=== PATIENT | female | born 1990 | race Caucasian/White ===

== ENCOUNTER 2018-08-05 13:22 | Emergency (ER) | payer BC ==
--- NOTE | 2018-08-05 13:47 | EDM.PDOC ---
ED HPI GENERAL MEDICAL PROBLEM - General Chief Complaint: ENT Problem Stated Complaint: HARD TIME BREATHING SICK [id number] Time Seen by Provider: 08/05/18 13:46 Source of Information: Reports: Patient History Limitations: Reports: No Limitations - History of Present Illness INITIAL COMMENTS - FREE TEXT/NARRATIVE: Pt to the ER with c/o sore throat, left ear pain, fever and chills, nausea, generalized body aches. Patient states she has had an upper respiratory infection for the past week or longer and this morning she woke up and her throat and ear were very painful. Patient denies cough, vomiting, or diarrhea, denies chest pain and SOB. Onset: Gradual Left Ear Pain Score (Numeric/FACES): 8 - Related Data Allergies Allergy/AdvReac Type Severity Reaction Status Date / Time gentamicin Allergy Rash Verified 08/05/18 13:29 sulfur dioxide Allergy Rash Verified 08/05/18 13:29 Home Meds: Home Meds . 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 Musculoskeletal History: Reports: None Neurological History: Reports: None Psychiatric History: Reports: None Endocrine/Metabolic History: Reports: None Hematologic History: Reports: None Immunologic History: Reports: None Oncologic (Cancer) History: Reports: None Dermatologic History: Reports: None - Infectious Disease History Infectious Disease History: Reports: None - Past Surgical History Head Surgeries/Procedures: Reports: None Social & Family History - Family History Family Medical History: Noncontributory - Tobacco Use Smoking Status *Q: Current Every Day Smoker Years of Tobacco use: 1 Packs/Tins Daily: 1 - Caffeine Use Caffeine Use: Reports: None - Recreational Drug Use Recreational Drug Use: No ED ROS ENT - Review of Systems Review Of Systems: ROS reveals no pertinent complaints other than HPI. ED EXAM, ENT - Physical Exam Exam: See Below Exam Limited By: No Limitations General Appearance: Alert, WD/WN, Lethargic, Mild Distress Eye Exam: Bilateral Eye: EOMI, Normal Inspection Ears: Normal External Exam, Hearing Grossly Normal, TM Bulging (left), TM Dullness (left), TM Erythema (left) Nose: Normal Inspection Mouth/Throat: Normal Inspection, Pharyngeal Erythema, Tonsillar Erythema, Tonsillar Swelling Head: Atraumatic, Normocephalic Neck: Normal Inspection, Supple, Non-Tender, Full Range of Motion Respiratory/Chest: No Respiratory Distress, Lungs Clear, Normal Breath Sounds, No Accessory Muscle Use, Chest Non-Tender Cardiovascular: Normal Peripheral Pulses, Regular Rate, Rhythm, No Edema, No Gallop, No JVD, No Murmur, No Rub GI/Abdominal: Normal Bowel Sounds, Soft, Non-Tender (Female) Exam: Deferred Rectal (Female) Exam: Deferred Back: Normal Inspection, Full Range of Motion Extremities: Normal Inspection, Normal Range of Motion, Non-Tender, No Pedal Edema, Normal Capillary Refill Neurological: Alert, Oriented, CN II-XII Intact, Normal Cognition, Normal Gait, Normal Reflexes, No Motor/Sensory Deficits Psychiatric: Normal Mood, Flat Affect Skin: Warm, Dry, Intact, Normal Color, No Rash Lymphatic: No Adenopathy Course - Vital Signs Last Recorded V/S: Last Vital Signs Temp 100.0 F 08/05/18 13:30 Pulse 110 H 08/05/18 13:30 Resp 16 08/05/18 13:30 BP 143/96 H 08/05/18 13:30 Pulse Ox 100 08/05/18 13:30 - Orders/Labs/Meds Orders: Active Orders 24 hr Category Date Time Status CULTURE STREP A CONFIRMATION [] Stat Lab 08/05/18 13:32 Results STREP SCRN A RAPID W CULT CONF [] Stat Lab 08/05/18 13:32 Results Labs: Rapid Strep: Negative Departure - Departure Time of Disposition: 14:07 Disposition: Home, Self-Care 01 Condition: Fair Clinical Impression: Tonsillitis Otitis media Qualifiers: Otitis media type: suppurative Chronicity: acute Laterality: left Recurrence: not specified as recurrent Spontaneous tympanic membrane rupture: without spontaneous rupture Qualified Code(s): H66.002 - Acute suppurative otitis media without spontaneous rupture of ear drum, left ear - Discharge Information *PRESCRIPTION DRUG MONITORING PROGRAM REVIEWED*: No *COPY OF PRESCRIPTION DRUG MONITORING REPORT IN PATIENT HERNESTO: No Instructions: Tonsillitis, [id number], Otitis Media, Adult, Ojty-li-Zegx, Upper Respiratory Infection, Adult, [id number] Forms: ED Department Discharge Additional Instructions: RX: Amoxicillin May use tylenol and/or ibuprofen as directed for pain/fever Drink plenty of fluids Follow up with your primary care facility - My Orders Last 24 Hours: My Active Orders 08/05/18 13:32 CULTURE STREP A CONFIRMATION [RM] Stat STREP SCRN A RAPID W CULT CONF [] Stat - Assessment/Plan Last 24 Hours: My Active Orders 08/05/18 13:32 CULTURE STREP A CONFIRMATION [] Stat STREP SCRN A RAPID W CULT CONF [] Stat
== END 2018-08-05 14:11 | disposition home or self-care (01) ==
LOC: DL.ED 13:22
DX: J03.90 Acute tonsillitis, unspecified (principal); H66.002 Acute suppurative otitis media without spontaneous rupture of ear drum, left ear; F17.210 Nicotine dependence, cigarettes, uncomplicated; Z88.1 Allergy status to other antibiotic agents; Z88.2 Allergy status to sulfonamides
CPT/HCPCS: 87081; 87430; 99283

== ENCOUNTER 2020-04-27 02:25 | Inpatient (IN) | payer OTHER ==
[2020-04-27] MEDS ORDERED: Ondansetron 4 MG/2 ML SDV ONE (03:34)
[2020-04-27] MEDS: Lactated Ringers 1,000 ML IV SCH ×2 (03:40→04:40)
[2020-04-27] MEDS ORDERED: Ondansetron 4 MG/2 ML SDV IVPUSH PRN (04:05)
[2020-04-27] MEDS ORDERED: Lidocaine 1% 30 ML SDV ONE (06:01)
[2020-04-27] MEDS: Oxytocin/Normal Saline 30 UNIT/500 ML BAG IV SCH ×2 (06:05→08:24)
[2020-04-27] MEDS ORDERED: Zolpidem 5 MG Tab PO PRN (06:23)
[2020-04-27] MEDS ORDERED: Misoprostol 400 MCG (4 X 100 MCG TAB) RECTAL PRN (06:23)
[2020-04-27] MEDS ORDERED: Carboprost Tromethamine 250 MCG/1 ML Amp IM PRN (06:23)
[2020-04-27] MEDS ORDERED: Sodium Chloride 0.9% 10 ML Syringe FLUSH PRN (06:23)
[2020-04-27] MEDS ORDERED: Tranexamic Acid 1,000 MG in Sodium Chloride 0.9% 100 ML IV PRN (06:23)
[2020-04-27] MEDS ORDERED: Benzocaine/Menthol 20%-0.5% Spray 56 GM Canister TOP PRN (06:23)
[2020-04-27] MEDS ORDERED: Oxytocin 10 Units/1 ML SDV IM PRN (06:23)
[2020-04-27] MEDS: Piperacillin/Tazobactam 3.375 GM in Sodium Chloride 0.9% 100 ML IV SCH ×2 (08:54→21:10)
[2020-04-27] MEDS: Prenatal Multivitamin with Calcium/Folic Acid/Iron Tab PO SCH (08:59)
--- NOTE | 2020-04-27 16:28 | HP ---
LOCATION: [facility]. HISTORY OF PRESENT ILLNESS: The patient is a 29-year-old, G1 at 40 weeks and 3 days, who presents with contraction and loss of fluid, which she thinks started roughly around midnight. No vaginal bleeding. Good movement. She has had excellent care. OBSTETRIC HISTORY: She is a G0. GYNECOLOGIC HISTORY: She did have chlamydia treated this . Test of cure in February of 2020 was normal. No abnormal Paps. PAST MEDICAL HISTORY: Negative. PAST SURGICAL HISTORY: Negative. SOCIAL HISTORY: The patient does not smoke. ALLERGIES: The patient is allergic to clindamycin, gentamicin, and sulfa. LABS: The patient's blood type is AB positive, antibody negative, rubella immune, syphilis negative, hepatitis B negative, HIV negative, 1-hour was 102, GBS is negative. The patient did have an ultrasound on 01/03/2020 which showed an anterior placenta, normal anatomy consistent with dates. PHYSICAL EXAMINATION: Vital Signs: The patient's temperature 36.7, heart rate 93, blood pressure 133/91, O2 sat 100%. Pelvic: EFM is reactive, reassuring. She is cesia every 2 to 3 minutes. The labor nurse did call me and told me she was in active labor. We did get an intrathecal, and within a couple of hours, she was ready to start pushing. LABORATORY DATA: The patient's white blood cell count 12.5, hemoglobin 12.9, platelets 272, and she is COVID negative. ASSESSMENT AND PLAN: A 29-year-old, G1 at 40 weeks and 3 days in active labor, group B streptococcus negative, and we will expect vaginal delivery. [facility] /[id number] MTDD
--- NOTE | 2020-04-27 16:42 | DEL ---
DATE: 04/27/2020 The patient delivered on 04/27/2020 in [facility]. PREDELIVERY DIAGNOSIS: Intrauterine at term, in active labor. PROCEDURE: Normal spontaneous vaginal delivery. FINDINGS: There was a second-degree midline laceration which was repaired. Placenta was delivered intact. The baby did weigh 3400 g. score was 8 and 9. ESTIMATED BLOOD LOSS: Normal for vaginal delivery. PROCEDURE IN DETAIL: The patient was admitted to Labor and delivery in active labor and was given an intrathecal. Within a few hours, she was ready to push. The 's head was delivered without any difficulties and with some gentle traction, the anterior shoulder was delivered. was delivered and placed on the maternal abdomen. Delayed cord clamping was performed and the cord blood was collected. The placenta was then delivered with some massage and cord traction. The placenta was delivered intact. The uterus was massaged and third stage Pitocin was given. Estimated blood loss was normal for vaginal delivery. The did weigh 3400 g, score was 8 and 9, and a midline laceration was repaired with a 3-0 Vicryl in the standard fashion. At the end of the procedure, mom and baby were both doing well, but shortly , the mother did have a temperature of 39 degree Celsius. also had a fever, therefore, we did start Zosyn 3.375 g. I would like her to have that b.i.d. for the next 24 hours for presumed chorioamnionitis. [facility] /[id number]
[2020-04-27] MEDS: Docusate Sodium 100 MG Cap PO PRN (19:06)
[2020-04-27] MEDS: Acetaminophen 325 MG Tab PO PRN (19:07)
[2020-04-27] MEDS: Ibuprofen 800 MG Tab PO PRN (19:07)
[2020-04-28] MEDS: Ibuprofen 800 MG Tab PO PRN ×2 (02:48→17:03)
[2020-04-28] MEDS: Acetaminophen 325 MG Tab PO PRN ×3 (02:49→17:04)
--- NOTE | 2020-04-28 09:10 | PCM.PNPP ---
- General Info Date of Service: 04/28/20 Subjective Update: Cecelia is day 1 s/p at 40w3d. She was diagnosed with chorioamnionitis shortly after delivery. She is currently on Zosyn and had no elevated temps overnight. She reports her lochia is mild. She is not . She has pain controlled with OTC medications. She has been advancing her diet and had good PO intake. She denies nausea and vomiting. She has been urinating spontaneously. She has passed flatus. She has been ambulating. Swelling is improving. She has no other complaints. No acute events overnight. Functional Status: Reports: Pain Controlled - Review of Systems General: Denies: Fever, Weakness HEENT: Denies: Headaches, Visual Changes Pulmonary: Denies: Shortness of Breath Cardiovascular: Reports: Edema. Denies: Chest Pain, Lightheadedness Gastrointestinal: Denies: Abdominal Pain, Constipation, Diarrhea, Nausea, Vomiting Neurological: Denies: Dizziness, Headache, Weakness - Patient Data Vital Signs - Most Recent: Last Vital Signs Temp 97.8 F 04/28/20 02:50 Pulse 72 04/28/20 00:45 Resp 14 04/27/20 16:30 BP 110/68 04/28/20 00:45 Pulse Ox 97 04/27/20 11:25 Weight - Most Recent: 214 lb Lab Results - Last 24 Hours: Laboratory Results - last 24 hr 04/28/20 Range/Units 06:11 WBC 17.5 H (5.0-10.0) 10^3/uL RBC 3.53 L (4.2-5.4) 10^6/uL Hgb 10.2 L D (12.0-16.0) g/dL Hct 31.8 L (37.0-47.0) % MCV 90.1 (80-100) fL MCH 28.9 (27.0-34.0) pg MCHC 32.1 L (33.0-35.0) g/dL Plt Count 231 (150-450) 10^3/uL Med Orders - Current: Current Medications Acetaminophen (Tylenol) 650 mg PO Q6H PRN PRN Reason: mild pain or fever Last Admin: 04/28/20 02:49 Dose: 650 mg Documented by: Benzocaine/Menthol (Dermoplast Pain Relief [place]) 0 gm TOP Q4H PRN PRN Reason: Perineal comfort measures Last Admin: 04/27/20 17:40 Dose: 1 applic Documented by: Carboprost Tromethamine (Hemabate Ds) 250 mcg IM ASDIRECTED PRN PRN Reason: Excessive vaginal bleeding Docusate Sodium (Colace) 100 mg PO BID PRN PRN Reason: Constipation Last Admin: 04/27/20 19:06 Dose: 100 mg Documented by: Lactated Ringer's (Ringers, Lactated) 1,000 mls @ 125 mls/hr IV ASDIRECTED [facility] Last Admin: 04/27/20 04:40 Dose: 125 mls/hr Documented by: Oxytocin/Sodium Chloride (Pitocin In Ns 30 Unit/500 Ml) 30 unit in 500 mls @ 2 mls/hr IV TITRATE [facility]; Protocol Last Titration: 04/27/20 11:35 Dose: 0 munits/min, 0 mls/hr Documented by: Tranexamic Acid 1,000 mg/ (Sodium Chloride) 110 mls @ 660 mls/hr IV ONETIME PRN PRN Reason: Bleeding Piperacillin Sod/Tazobactam (Sod 3.375 gm/ Sodium Chloride) 100 mls @ 200 mls/hr IV BID [facility] Stop: 04/28/20 11:00 Last Admin: 04/27/20 21:10 Dose: 200 mls/hr Documented by: Ibuprofen (Motrin) 800 mg PO Q8H PRN PRN Reason: Mild Pain or Fever Last Admin: 04/28/20 02:48 Dose: 800 mg Documented by: Misoprostol (Cytotec) 800 mcg RECTAL ONETIME PRN PRN Reason: Hemorrhage Ondansetron HCl (Zofran) 4 mg IVPUSH Q4H PRN PRN Reason: Nausea/Vomiting Last Admin: 04/27/20 03:50 Dose: 4 mg Documented by: Oxytocin (Pitocin) 10 unit IM ONETIME PRN PRN Reason: Bleeding Prenat Multivit/[place]/Iron/Folic Ac ( Plus Iron) 1 each PO DAILY [facility] Last Admin: 04/27/20 08:59 Dose: 1 each Documented by: Simethicone (Simethicone) 80 mg PO Q4H PRN PRN Reason: Gas Sodium Chloride (Saline Flush) 10 ml FLUSH ASDIRECTED PRN PRN Reason: Keep Vein Open [place] (Medi-Pads) 1 each TOP Q4HR PRN PRN Reason: Perineal Comfort Measure Last Admin: 04/27/20 17:39 Dose: 1 pad Documented by: Zolpidem Tartrate (Ambien) 5 mg PO BEDTIME PRN PRN Reason: Insomnia Discontinued Medications Lidocaine HCl (Xylocaine-Mpf 1%) Confirm Administered Dose 30 ml .ROUTE .STK-MED ONE Stop: 04/27/20 06:02 Last Admin: 04/27/20 06:05 Dose: 30 ml Documented by: Ondansetron HCl (Zofran) Confirm Administered Dose 4 mg .ROUTE .STK-MED ONE Stop: 04/27/20 03:35 Last Admin: 04/27/20 04:06 Dose: Not Given Documented by: - Infant Interaction Support Person: Significant Other - Recovery Exam Fundal Tone: Firm Fundal Level: 1 Fingerbreadths Below Umbilicus Fundal Placement: Midline Lochia Amount: Small Lochia Color: Rubra/Red Perineum Description: Intact, Minimal Bruising/Swelling Episiotomy/Laceration: Approximated Bladder Status: Nonpalpable, Voiding - Exam General: Alert, Oriented HEENT: Mucous Membr. Moist/[place] Neck: Supple Lungs: Clear to Auscultation, Normal Respiratory Effort Cardiovascular: Regular Rate, Regular Rhythm, No Murmurs GI/Abdominal Exam: Soft, Non-Tender, No Distention Extremities: Non-Tender, Pedal Edema Skin: Warm, Dry, Intact Neurological: No New Focal Deficit Psy/Mental Status: Alert, Normal Affect, Normal Mood - Problem List & Annotations (1) Chorioamnionitis SNOMED Code(s): 45950729 Code(s): O41.1290 - CHORIOAMNIONITIS, UNSP TRIMESTER, NOT APPLICABLE OR UNSP Status: Acute Current Visit: Yes (2) Prolonged rupture of membranes, delivered SNOMED Code(s): 86887438, 197452667 Code(s): ZJF3236 - Status: Acute Current Visit: Yes (3) (normal spontaneous vaginal delivery) SNOMED Code(s): 15629295, 471522928 Code(s): O80 - ENCOUNTER FOR FULL-TERM UNCOMPLICATED DELIVERY Status: Acute Current Visit: Yes (4) Anemia SNOMED Code(s): 893933884 Code(s): D64.9 - ANEMIA, UNSPECIFIED Status: Acute Current Visit: Yes (5) Second degree perineal laceration SNOMED Code(s): 7205133 Code(s): O70.1 - SECOND DEGREE PERINEAL LACERATION DURING DELIVERY Status: Acute Current Visit: Yes (6) Rubella immune SNOMED Code(s): 361522162 Code(s): Z78.9 - OTHER SPECIFIED HEALTH STATUS Status: Acute Current Visit: Yes - Problem List Review Problem List Initiated/Reviewed/Updated: Yes - Plan Plan:: Continue post cares. Zosyn will be discontinued this morning after receiving antibiotics for 24 hours. Continue to monitor closely. Start iron for anemia. Plan for discharge home tomorrow. Laverne Torres MD
[2020-04-28] MEDS: Piperacillin/Tazobactam 3.375 GM in Sodium Chloride 0.9% 100 ML IV SCH (09:23)
[2020-04-28] MEDS: Prenatal Multivitamin with Calcium/Folic Acid/Iron Tab PO SCH (09:26)
[2020-04-28] MEDS: Ferrous Sulfate 325 MG Tab PO SCH ×2 (09:29→17:04)
[2020-04-28] MEDS: Docusate Sodium 100 MG Cap PO PRN (09:37)
[2020-04-28] MEDS: Simethicone 80 MG Tab.Chew PO PRN (19:01)
[2020-04-29] MEDS: Ibuprofen 800 MG Tab PO PRN ×2 (00:33→08:58)
[2020-04-29] MEDS: Acetaminophen 325 MG Tab PO PRN (00:34)
--- NOTE | 2020-04-29 08:19 | PCM.PNPP ---
- General Info Date of Service: 04/29/20 Subjective Update: Cecelia is day 2 s/p . She was treated for chorioamnionitis for 24 hours with Zosyn. No fevers since then. She reports her lochia is mild to moderate. She is not . She has good pain control with OTC medications. She has been advancing her diet and has good PO intake. Patient denies nausea or vomiting. Patient has been urinating spontaneously. She has passed flatus. She has been ambulating. She has no complaints. No acute events overnight. Functional Status: Reports: Pain Controlled - Review of Systems General: Denies: Fever, Weakness HEENT: Denies: Headaches, Visual Changes Pulmonary: Denies: Shortness of Breath Cardiovascular: Denies: Chest Pain, Palpitations, Lightheadedness Gastrointestinal: Denies: Diarrhea, Nausea, Vomiting Skin: Denies: Rash Neurological: Denies: Dizziness, Headache, Numbness, Weakness - Patient Data Vital Signs - Most Recent: Last Vital Signs Temp 98.2 F 04/28/20 19:47 Pulse 93 04/28/20 19:47 Resp 20 04/28/20 19:47 BP 129/77 04/28/20 19:47 Pulse Ox 100 04/28/20 19:47 Weight - Most Recent: 214 lb Med Orders - Current: Current Medications Acetaminophen (Tylenol) 650 mg PO Q6H PRN PRN Reason: mild pain or fever Last Admin: 04/29/20 00:34 Dose: 650 mg Documented by: Benzocaine/Menthol (Dermoplast Pain Relief [place]) 0 gm TOP Q4H PRN PRN Reason: Perineal comfort measures Last Admin: 04/27/20 17:40 Dose: 1 applic Documented by: Carboprost Tromethamine (Hemabate Ds) 250 mcg IM ASDIRECTED PRN PRN Reason: Excessive vaginal bleeding Docusate Sodium (Colace) 100 mg PO BID PRN PRN Reason: Constipation Last Admin: 04/28/20 09:37 Dose: 100 mg Documented by: Ferrous Sulfate (Ferrous Sulfate) 325 mg PO BIDMEALS [facility] Last Admin: 04/28/20 17:04 Dose: 325 mg Documented by: Lactated Ringer's (Ringers, Lactated) 1,000 mls @ 125 mls/hr IV ASDIRECTED [facility] Last Admin: 04/27/20 04:40 Dose: 125 mls/hr Documented by: Oxytocin/Sodium Chloride (Pitocin In Ns 30 Unit/500 Ml) 30 unit in 500 mls @ 2 mls/hr IV TITRATE [facility]; Protocol Last Titration: 04/27/20 11:35 Dose: 0 munits/min, 0 mls/hr Documented by: Tranexamic Acid 1,000 mg/ (Sodium Chloride) 110 mls @ 660 mls/hr IV ONETIME PRN PRN Reason: Bleeding Ibuprofen (Motrin) 800 mg PO Q8H PRN PRN Reason: Mild Pain or Fever Last Admin: 04/29/20 00:33 Dose: 800 mg Documented by: Misoprostol (Cytotec) 800 mcg RECTAL ONETIME PRN PRN Reason: Hemorrhage Ondansetron HCl (Zofran) 4 mg IVPUSH Q4H PRN PRN Reason: Nausea/Vomiting Last Admin: 04/27/20 03:50 Dose: 4 mg Documented by: Oxytocin (Pitocin) 10 unit IM ONETIME PRN PRN Reason: Bleeding Prenat Multivit/[place]/Iron/Folic Ac ( Plus Iron) 1 each PO DAILY [facility] Last Admin: 04/28/20 09:26 Dose: 1 each Documented by: Simethicone (Simethicone) 80 mg PO Q4H PRN PRN Reason: Gas Last Admin: 04/28/20 19:01 Dose: 80 mg Documented by: Sodium Chloride (Saline Flush) 10 ml FLUSH ASDIRECTED PRN PRN Reason: Keep Vein Open Last Admin: 04/28/20 09:30 Dose: 10 ml Documented by: [place] (Medi-Pads) 1 each TOP Q4HR PRN PRN Reason: Perineal Comfort Measure Last Admin: 04/27/20 17:39 Dose: 1 pad Documented by: Zolpidem Tartrate (Ambien) 5 mg PO BEDTIME PRN PRN Reason: Insomnia Discontinued Medications Piperacillin Sod/Tazobactam (Sod 3.375 gm/ Sodium Chloride) 100 mls @ 200 mls/hr IV BID [facility] Stop: 04/28/20 11:00 Last Admin: 04/28/20 09:23 Dose: 200 mls/hr Documented by: Lidocaine HCl (Xylocaine-Mpf 1%) Confirm Administered Dose 30 ml .ROUTE .STK-MED ONE Stop: 04/27/20 06:02 Last Admin: 04/27/20 06:05 Dose: 30 ml Documented by: Ondansetron HCl (Zofran) Confirm Administered Dose 4 mg .ROUTE .STK-MED ONE Stop: 04/27/20 03:35 Last Admin: 04/27/20 04:06 Dose: Not Given Documented by: - Infant Interaction Support Person: Significant Other - Recovery Exam Fundal Tone: Firm Fundal Level: 1 Fingerbreadths Below Umbilicus Fundal Placement: Midline Lochia Amount: Scant Lochia Color: Rubra/Red Perineum Description: Intact, Minimal Bruising/Swelling Episiotomy/Laceration: Approximated Bladder Status: Nonpalpable, Voiding Urinary Elimination: Voided - Problem List & Annotations (1) Chorioamnionitis SNOMED Code(s): 31974757 Code(s): O41.1290 - CHORIOAMNIONITIS, UNSP TRIMESTER, NOT APPLICABLE OR UNSP Status: Acute Current Visit: Yes (2) Prolonged rupture of membranes, delivered SNOMED Code(s): 88460895, 531124332 Code(s): MLB2866 - Status: Acute Current Visit: Yes (3) (normal spontaneous vaginal delivery) SNOMED Code(s): 51897189, 585942269 Code(s): O80 - ENCOUNTER FOR FULL-TERM UNCOMPLICATED DELIVERY Status: Acute Current Visit: Yes (4) Anemia SNOMED Code(s): 152296984 Code(s): D64.9 - ANEMIA, UNSPECIFIED Status: Acute Current Visit: Yes (5) Second degree perineal laceration SNOMED Code(s): 5355286 Code(s): O70.1 - SECOND DEGREE PERINEAL LACERATION DURING DELIVERY Status: Acute Current Visit: Yes (6) Rubella immune SNOMED Code(s): 599799929 Code(s): Z78.9 - OTHER SPECIFIED HEALTH STATUS Status: Acute Current Visit: Yes - Problem List Review Problem List Initiated/Reviewed/Updated: Yes - My Orders Last 24 Hours: My Active Orders 04/28/20 10:00 Ferrous Sulfate 325 mg PO BIDMEALS - Plan Plan:: Continue post cares. No fevers. Continue iron for anemia. Signs and symptoms of depression, mastitis and normal expectations for lochia discussed with the patient. Advised pelvic rest for 6 weeks. control to be discussed during the visit. Plan for discharge home today. Follow up in 6 weeks for post visit. Laverne Torres MD
--- NOTE | 2020-04-29 08:31 | PCM.DCSUM1 ---
Discharge Summary - Hospital Course Free Text/Narrative:: Patient is a 40w3d who presented to Labor and delivery in active labor. She had rupture of membranes at home at an unknown time. She was given an intrathecal. Within a few hours, she was ready to push. She had an uncomplicated with a 2nd degree laceration that was repaired in the usual fashion. EBL was normal for vaginal delivery. did weight 3400 g and apgars were 8 and 9. Shortly after delivery, mother did have a temperature of 39 deg Celsius. also had an elevated temp so Zosyn was given for 24 hours for chorioamnionitis. Her post course was uneventful. She had no further fevers. She was discharged home on post patrum day 2. - Discharge Data Discharge Date: 04/29/20 Discharge Disposition: Home, Self-Care 01 Condition: Good - Referral to Home Health Primary Care Physician: Laverne Torres MD - Discharge Diagnosis/Problem(s) (1) Chorioamnionitis SNOMED Code(s): 76641393 ICD Code: O41.1290 - CHORIOAMNIONITIS, UNSP TRIMESTER, NOT APPLICABLE OR UNSP Status: Acute Current Visit: Yes (2) Prolonged rupture of membranes, delivered SNOMED Code(s): 93041486, 292636225 ICD Code: [id number] - Status: Acute Current Visit: Yes (3) (normal spontaneous vaginal delivery) SNOMED Code(s): 47688194, 220665542 ICD Code: O80 - ENCOUNTER FOR FULL-TERM UNCOMPLICATED DELIVERY Status: Acute Current Visit: Yes (4) Anemia SNOMED Code(s): 359600218 ICD Code: D64.9 - ANEMIA, UNSPECIFIED Status: Acute Current Visit: Yes (5) Second degree perineal laceration SNOMED Code(s): 0953670 ICD Code: O70.1 - SECOND DEGREE PERINEAL LACERATION DURING DELIVERY Status: Acute Current Visit: Yes (6) Rubella immune SNOMED Code(s): 606397283 ICD Code: Z78.9 - OTHER SPECIFIED HEALTH STATUS Status: Acute Current Visit: Yes - Discharge Plan *PRESCRIPTION DRUG MONITORING PROGRAM REVIEWED*: Not Applicable *COPY OF PRESCRIPTION DRUG MONITORING REPORT IN PATIENT HERNESTO: Not Applicable Home Medications: Home Meds Mv-Mn/Iron/FA/Herbal/Digestive [ One Tablet] 1 each PO DAILY 04/27/20 [History] - Discharge Summary/Plan Comment DC Time >30 min.: No - Patient Data Vitals - Most Recent: Last Vital Signs Temp 98.2 F 04/28/20 19:47 Pulse 93 04/28/20 19:47 Resp 20 04/28/20 19:47 BP 129/77 04/28/20 19:47 Pulse Ox 100 04/28/20 19:47 Weight - Most Recent: 214 lb Med Orders - Current: Current Medications Acetaminophen (Tylenol) 650 mg PO Q6H PRN PRN Reason: mild pain or fever Last Admin: 04/29/20 00:34 Dose: 650 mg Documented by: Benzocaine/Menthol (Dermoplast Pain Relief [facility]) 0 gm TOP Q4H PRN PRN Reason: Perineal comfort measures Last Admin: 04/27/20 17:40 Dose: 1 applic Documented by: Carboprost Tromethamine (Hemabate Ds) 250 mcg IM ASDIRECTED PRN PRN Reason: Excessive vaginal bleeding Docusate Sodium (Colace) 100 mg PO BID PRN PRN Reason: Constipation Last Admin: 04/28/20 09:37 Dose: 100 mg Documented by: Ferrous Sulfate (Ferrous Sulfate) 325 mg PO BIDMEALS [facility] Last Admin: 04/28/20 17:04 Dose: 325 mg Documented by: Lactated Ringer's (Ringers, Lactated) 1,000 mls @ 125 mls/hr IV ASDIRECTED [facility] Last Admin: 04/27/20 04:40 Dose: 125 mls/hr Documented by: Oxytocin/Sodium Chloride (Pitocin In Ns 30 Unit/500 Ml) 30 unit in 500 mls @ 2 mls/hr IV TITRATE [facility]; Protocol Last Titration: 04/27/20 11:35 Dose: 0 munits/min, 0 mls/hr Documented by: Tranexamic Acid 1,000 mg/ (Sodium Chloride) 110 mls @ 660 mls/hr IV ONETIME PRN PRN Reason: Bleeding Ibuprofen (Motrin) 800 mg PO Q8H PRN PRN Reason: Mild Pain or Fever Last Admin: 04/29/20 00:33 Dose: 800 mg Documented by: Misoprostol (Cytotec) 800 mcg RECTAL ONETIME PRN PRN Reason: Hemorrhage Ondansetron HCl (Zofran) 4 mg IVPUSH Q4H PRN PRN Reason: Nausea/Vomiting Last Admin: 04/27/20 03:50 Dose: 4 mg Documented by: Oxytocin (Pitocin) 10 unit IM ONETIME PRN PRN Reason: Bleeding Prenat Multivit/[place]/Iron/Folic Ac ( Plus Iron) 1 each PO DAILY [facility] Last Admin: 04/28/20 09:26 Dose: 1 each Documented by: Simethicone (Simethicone) 80 mg PO Q4H PRN PRN Reason: Gas Last Admin: 04/28/20 19:01 Dose: 80 mg Documented by: Sodium Chloride (Saline Flush) 10 ml FLUSH ASDIRECTED PRN PRN Reason: Keep Vein Open Last Admin: 04/28/20 09:30 Dose: 10 ml Documented by: [place] (Medi-Pads) 1 each TOP Q4HR PRN PRN Reason: Perineal Comfort Measure Last Admin: 04/27/20 17:39 Dose: 1 pad Documented by: Zolpidem Tartrate (Ambien) 5 mg PO BEDTIME PRN PRN Reason: Insomnia Discontinued Medications Piperacillin Sod/Tazobactam (Sod 3.375 gm/ Sodium Chloride) 100 mls @ 200 mls/hr IV BID [facility] Stop: 04/28/20 11:00 Last Admin: 04/28/20 09:23 Dose: 200 mls/hr Documented by: Lidocaine HCl (Xylocaine-Mpf 1%) Confirm Administered Dose 30 ml .ROUTE .STK-MED ONE Stop: 04/27/20 06:02 Last Admin: 04/27/20 06:05 Dose: 30 ml Documented by: Ondansetron HCl (Zofran) Confirm Administered Dose 4 mg .ROUTE .STK-MED ONE Stop: 04/27/20 03:35 Last Admin: 04/27/20 04:06 Dose: Not Given Documented by:
[2020-04-29] MEDS: Ferrous Sulfate 325 MG Tab PO SCH (08:58)
[2020-04-29] MEDS: Prenatal Multivitamin with Calcium/Folic Acid/Iron Tab PO SCH (08:58)
[2020-04-29] MEDS: Docusate Sodium 100 MG Cap PO PRN (08:58)
[2020-04-29] MEDS: Simethicone 80 MG Tab.Chew PO PRN (09:02)
== END 2020-04-29 12:15 | disposition home or self-care (01) | DRG 805 ==
LOC: DL.OBCHECK 02:25 → DL.OB 03:49 → OBSVTOIN 06:00
PROVIDERS: ADMIT Obstetrics & Gynecology; ATTEND Obstetrics & Gynecology
PROC: 10E0XZZ Delivery of Products of Conception, External Approach (ICD-10-PCS; principal; 2020-04-27)
PROC: 0KQM0ZZ Repair Perineum Muscle, Open Approach (ICD-10-PCS; 2020-04-27)
PROC: 3E0R3BZ Introduction of Anesthetic Agent into Spinal Canal, Percutaneous Approach (ICD-10-PCS; 2020-04-27)
PROC: 00HU33Z Insertion of Infusion Device into Spinal Canal, Percutaneous Approach (ICD-10-PCS; 2020-04-27)
DX: O99.02 Anemia complicating childbirth (principal); O41.1230 Chorioamnionitis, third trimester, not applicable or unspecified; Z37.0 Single live birth; D64.9 Anemia, unspecified; O70.1 Second degree perineal laceration during delivery; Z3A.40 40 weeks gestation of pregnancy
CPT/HCPCS: 36415; 59409; 85027; A9270-GY; J2001; J2405; J2543; J2590; J7050; J7120; U0002

== ENCOUNTER 2022-04-29 05:50 | Inpatient (IN) | payer OTHER ==
[2022-04-29] MEDS: Lactated Ringers 1,000 ML IV SCH ×2 (06:25→07:38)
[2022-04-29] MEDS ORDERED: Tranexamic Acid 1,000 MG in Sodium Chloride 0.9% 100 ML IV PRN (06:33)
[2022-04-29] MEDS ORDERED: Sodium Chloride 0.9% 10 ML Syringe FLUSH PRN (06:33)
[2022-04-29] MEDS ORDERED: Lactated Ringers 1,000 ML IV ONE (06:33)
[2022-04-29] MEDS ORDERED: Ondansetron 4 MG/2 ML SDV IVPUSH PRN ×2 (06:33→06:50)
[2022-04-29] MEDS ORDERED: Lidocaine 1% 30 ML SDV INJECT PRN (06:33)
[2022-04-29] MEDS ORDERED: Carboprost Tromethamine 250 MCG/1 ML Amp IM PRN (06:33)
[2022-04-29] MEDS ORDERED: Acetaminophen 325 MG Tab PO PRN ×2 (06:33→19:03)
[2022-04-29] MEDS ORDERED: Misoprostol 400 MCG (4 X 100 MCG TAB) RECTAL PRN (06:33)
[2022-04-29] MEDS ORDERED: Methylergonovine 0.2 MG/1 ML Amp IM PRN (06:33)
[2022-04-29] MEDS ORDERED: Oxytocin/Normal Saline 30 UNIT/500 ML BAG IV SCH (06:45)
[2022-04-29] MEDS ORDERED: Promethazine 25 MG/ML SDV IM PRN (06:50)
[2022-04-29] MEDS ORDERED: Naloxone 2 MG/2 ML Syringe IVPUSH PRN (06:50)
[2022-04-29] MEDS ORDERED: ePHEDrine 50 MG/ML SDV IVPUSH PRN (06:50)
[2022-04-29] MEDS ORDERED: Lactated Ringers 500 ML IV SCH ×2 (07:00)
[2022-04-29] MEDS ORDERED: Famotidine 20 MG/2 ML SDV IVPUSH PRN (07:05)
[2022-04-29] MEDS ORDERED: Morphine PF 1 MG/ML Amp ITHECAL ONE (12:02)
[2022-04-29] MEDS ORDERED: Simethicone 80 MG Tab.Chew PO PRN (19:03)
[2022-04-29] MEDS ORDERED: Benzocaine/Menthol 20%-0.5% Spray 78 GM Cannister TOP PRN (19:03)
[2022-04-30] MEDS: Prenatal Multivitamin with Calcium/Folic Acid/Iron Tab PO SCH (08:28)
[2022-04-30] MEDS: Ibuprofen 800 MG Tab PO PRN ×2 (08:28→17:50)
[2022-04-30] MEDS: Docusate Sodium 100 MG Cap PO PRN ×2 (08:28→23:08)
[2022-05-01] MEDS: Prenatal Multivitamin with Calcium/Folic Acid/Iron Tab PO SCH (10:00)
== END 2022-05-01 12:10 | disposition home or self-care (01) | DRG 807 ==
LOC: DL.OBCHECK 05:50 → OBSVTOIN 06:33 → DL.OB 06:33
PROVIDERS: ADMIT Family Medicine; ATTEND Family Medicine
PROC: 10E0XZZ Delivery of Products of Conception, External Approach (ICD-10-PCS; principal; 2022-04-29)
PROC: 0KQM0ZZ Repair Perineum Muscle, Open Approach (ICD-10-PCS; 2022-04-29)
PROC: 00HU33Z Insertion of Infusion Device into Spinal Canal, Percutaneous Approach (ICD-10-PCS; 2022-04-29)
PROC: 3E0R3BZ Introduction of Anesthetic Agent into Spinal Canal, Percutaneous Approach (ICD-10-PCS; 2022-04-29)
DX: O99.02 Anemia complicating childbirth (principal); Z37.0 Single live birth; D64.9 Anemia, unspecified; Z3A.39 39 weeks gestation of pregnancy; O70.1 Second degree perineal laceration during delivery; Z86.16 Personal history of COVID-19; O99.214 Obesity complicating childbirth; Z88.1 Allergy status to other antibiotic agents; Z88.2 Allergy status to sulfonamides; Z20.822 Contact with and (suspected) exposure to COVID-19
CPT/HCPCS: 36415; 59409; 62320; 82565; 82570; 84156; 84450; 84460; 84520; 85027; A9270-GY; J2274; J2405; J2590; J7120; U0002